=== PATIENT | male | born 1970 | race Caucasian/White ===

== ENCOUNTER 2016-04-22 01:11 | Inpatient (IN) | payer SELFPAY ==
[~2016-04-22] VITALS: Ht 182.9 cm; Wt 74.0 kg
[2016-04-22] VITALS (9 sets, daily range): BP systolic 115–151; BP diastolic 73–79; PULSE 75–95; RESP 16–24; TEMP 98.1–98.2; O2SAT 95–99
[~2016-04-22 01:11] MED LIST: HYDR-3580 PO; MEDR4PAK3 PO; PROT40TA PO; SUPETAB30 PO
[2016-04-22] MEDS ORDERED: ASPI1TAB69 PO (01:14)
[2016-04-22] MEDS ORDERED: SODIUM CHLOR 0.9% 1000 ML INJ 1,000 ML IV SCH (01:21)
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
[2016-04-22] MEDS ORDERED: MORPHINE SULFATE 4 MG/ML INJ IV PUSH ONE (01:30)
[2016-04-22] MEDS ORDERED: THIAMINE INJ 100 MG in SODIUM CHLORIDE 0.9% INJ 100 ML IV ONE (01:30)
[2016-04-22] MEDS ORDERED: SODIUM CHLORIDE 0.9% FLUSH 5 ML FLUSH IVF PRN (01:30)
[2016-04-22] MEDS ORDERED: PANT20 PO (01:37)
[2016-04-22 01:50] LABS: AUTOMATED NEUTROPHIL # 10.3 TH/MM3 (1.8-7.7); BASOPHIL # 0.1 TH/MM3 (0-0.2); BASOPHIL % 0.9 % (0.0-2.0); EOSINOPHIL # 0.4 TH/MM3 (0-0.4); EOSINOPHIL % 2.4 % (0.0-4.0); HEMO FLAGS DIFF FINAL; LYMPH % 20.4 % (9.0-44.0); MEAN CELL VOLUME 92.6 FL (80.0-100.0); MEAN CORPUSCULAR HEMOGLOBIN 31.5 PG (27.0-34.0); MONO % 6.3 % (0.0-8.0); PLATELET COUNT 220 TH/MM3 (150-450); RED BLOOD COUNT 4.43 MIL/MM3 (4.50-5.90); RED CELL DISTRIBUTION WIDTH 13.5 % (11.6-17.2); WHITE BLOOD COUNT 14.7 TH/MM3 (4.0-11.0)
[2016-04-22 02:01] LABS: POTASSIUM 3.2 MEQ/L (3.5-5.1)
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
[2016-04-22] MEDS ORDERED: ONDANSETRON HCL 4 MG/2 ML VIAL ONE (02:22)
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
[2016-04-22] MEDS ORDERED: ONDANSETRON HCL 4 MG/2 ML VIAL IV PUSH ONE ×2 (02:30→12:00)
[2016-04-22] MEDS ORDERED: MORPHINE SULFATE 8 MG/ML INJ IV PUSH ONE (02:30)
[2016-04-22] MEDS ORDERED: HYDROmorphone HCL PF 1 MG/ML VIAL ONE (03:28)
[2016-04-22] MEDS ORDERED: NALOXONE HCL 0.4 MG/ML AMP IV PRN (04:30)
[2016-04-22] MEDS ORDERED: HYDROmorphone HCL PF 1 MG/ML VIAL IV PUSH ONE ×2 (04:30→12:00)
[2016-04-22] MEDS ORDERED: SODIUM CHLORIDE 0.9% FLUSH 5 ML FLUSH FLUSH PRN (04:30)
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
[2016-04-22] MEDS ORDERED: DEXAMETHASONE SOD PHOS 20 MG/5 ML VIAL IV PUSH ONE (05:00)
[2016-04-22] MEDS: SODIUM CHLOR 0.9% 1000 ML INJ 1,000 ML IV SCH ×3 (05:26→19:45)
[2016-04-22] MEDS: PANTOPRAZOLE SODIUM 40 MG VIAL IV PUSH SCH (05:26)
[2016-04-22] MEDS: DEXAMETHASONE SOD PHOS 4 MG/ML VIAL IV PUSH SCH ×2 (05:26→11:42)
[2016-04-22] MEDS: AMPICILLIN-SULBACTAM INJ 1,500 MG in SODIUM CHLORIDE 0.9% INJ 100 ML IV SCH ×4 (05:42→22:05)
[2016-04-22] MEDS: HYDROmorphone HCL PF 1 MG/ML VIAL IV PUSH PRN ×3 (05:42→20:58)
[2016-04-22] MEDS: ONDANSETRON HCL 4 MG/2 ML VIAL IVP PRN ×3 (08:28→12:42)
[2016-04-22] MEDS: SODIUM CHLORIDE 0.9% FLUSH 5 ML FLUSH FLUSH SCH ×2 (08:53→20:58)
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
--- NOTE | 2016-04-22 11:31 | EKG ---
Date Performed: 04/22/2016 Time Performed: 01:43:10 PTAGE: 45 years EKG: Sinus rhythm POSSIBLE LEFT ATRIAL ENLARGEMENT SEPTAL MYOCARDIAL INFARCTION Compared to previous tracing, lateral ST-T wave abnormality has resolved. ABNORMAL ECG PREVIOUS TRACING : 11/26/2014 10.22 DOCTOR: Giovani Nixon Interpretating Date/Time 04/22/2016 11:28:54
[2016-04-22] MEDS ORDERED: KETOROLAC TROMETHAMINE 60 MG/2 ML (IM) VIAL IM ONE (12:00)
[2016-04-22] MEDS ORDERED: PROPOFOL 200 MG/20 ML AMP IV ONE (12:00)
[2016-04-22] MEDS ORDERED: PHENYLEPH/NS 1000 MCG/10 ML SYR IV ONE (12:00)
[2016-04-22] MEDS ORDERED: LACTATED RINGER'S 1000 ML INJ 1,000 ML IV ONE (12:00)
[2016-04-22] MEDS ORDERED: ACETAMINOPHEN 1000 MG/100 ML VIAL IV ONE (16:09)
[2016-04-22] MEDS ORDERED: MIDAZOLAM HCL 2 MG/2 ML VIAL ONE (16:10)
[2016-04-22] MEDS ORDERED: fentaNYL CITRATE 250 MCG/5 ML AMP ONE ×2 (16:10→19:26)
--- NOTE | 2016-04-22 16:25 | HHI.PR ---
Addendum to Inpatient Note Additional Information Patient seen/examined. Patient is currently doing well. Waiting for possible oral surgery today. We'll change IV Dilaudid to 1 mg every 3 hours when necessary. When patient is able to tolerate oral intake, we'll add oral pain medications. Kiah Hsieh DO Apr 22, 2016 4:25 pm
[2016-04-22] MEDS ORDERED: ceFAZolin INJ 1,000 MG VIAL ONE (17:42)
[2016-04-22] MEDS ORDERED: LIDOCAINE 2%/EPINEPHrine 1:100,000 30ML MDV INFIL ONE (17:50)
[2016-04-22] MEDS ORDERED: CHLORHEXIDINE 0.12% (ORAL KIT) 15 ML CUP MT ONE (17:53)
[2016-04-22] MEDS ORDERED: methylPREDNISolone SOD SUCC 125 MG/2 ML VIAL ONE (19:31)
[2016-04-22] MEDS: methylPREDNISolone SOD SUCC 125 MG/2 ML VIAL IV SCH (19:35)
[2016-04-22] MEDS ORDERED: DO NOT ADM ANY ANTICOAGULANT DRUGS XX PRN (19:45)
[2016-04-23] VITALS: BP 129/63; PULSE 80; RESP 16; TEMP 97; O2SAT 97
[2016-04-23] MEDS: HYDROmorphone HCL PF 1 MG/ML VIAL IV PUSH PRN ×4 (00:05→09:13)
[2016-04-23] MEDS: methylPREDNISolone SOD SUCC 125 MG/2 ML VIAL IV SCH (02:16)
[2016-04-23 04:00] VITALS: BP 122/64; PULSE 85; RESP 16; TEMP 96.5; O2SAT 97
[2016-04-23] MEDS: PANTOPRAZOLE SODIUM 40 MG VIAL IV PUSH SCH (04:37)
[2016-04-23] MEDS: ONDANSETRON HCL 4 MG/2 ML VIAL IVP PRN (04:37)
[2016-04-23] MEDS: AMPICILLIN-SULBACTAM INJ 1,500 MG in SODIUM CHLORIDE 0.9% INJ 100 ML IV SCH ×2 (04:37→09:12)
[2016-04-23] MEDS: SODIUM CHLOR 0.9% 1000 ML INJ 1,000 ML IV SCH (04:38)
[2016-04-23 05:36] LABS: AUTOMATED NEUTROPHIL # 20.6 TH/MM3 (1.8-7.7); BASOPHIL % 0.1 % (0.0-2.0); HEMATOCRIT 35.9 % (39.0-51.0); HEMO FLAGS DIFF FINAL; LYMPH % 4.4 % (9.0-44.0); MEAN CELL VOLUME 92.9 FL (80.0-100.0); MEAN CORPUSCULAR HEMOGLOBIN 31.7 PG (27.0-34.0); MEAN CORPUSCULAR HGB CONC 34.2 % (32.0-36.0); MONO % 2.1 % (0.0-8.0); NEUT % 93.4 % (16.0-70.0); PLATELET COUNT 173 TH/MM3 (150-450); RED BLOOD COUNT 3.87 MIL/MM3 (4.50-5.90); RED CELL DISTRIBUTION WIDTH 13.4 % (11.6-17.2)
[2016-04-23 06:01] LABS: BICARBONATE 24.2 MEQ/L (21.0-32.0); POTASSIUM 3.8 MEQ/L (3.5-5.1)
--- NOTE | 2016-04-23 07:35 | HHI.PR ---
Subjective Remarks pod 1 s/p orif right mandible fracture/left subcondylar fracture, closure of lower lip laceration pt seen and examined, AAOx3, NAD. ambulating, voiding, tolerating po no complaints, reports feeling good, bite feels normal girlfriend/nurse at bedside Objective Vital Signs Date Time Temp Pulse Resp B/P Pulse Ox O2 Delivery O2 Flow Rate FiO2 04/23/16 04:00 96.5 85 16 122/64 97 04/23/16 00:00 97.0 80 16 129/63 97 04/22/16 21:08 Nasal Cannula 2.00 04/22/16 20:55 97 Nasal Cannula 2.00 04/22/16 20:55 90 04/22/16 20:35 98.2 75 18 123/74 97 04/22/16 20:00 98.6 87 15 126/78 95 Nasal Cannula 2 04/22/16 19:45 92 17 128/83 96 Nasal Cannula 2 04/22/16 19:30 99 14 131/83 98 Nasal Cannula 3 04/22/16 19:15 96 22 143/85 100 Nasal Cannula 3 04/22/16 19:13 98.9 90 19 147/88 100 Simple Mask 6 04/22/16 15:08 95 16 115/75 96 04/22/16 11:32 88 24 130/79 95 Nasal Cannula 2 04/22/16 09:22 87 16 124/76 97 Room Air 04/22/16 08:07 78 16 146/78 99 Room Air I/O 04/22/16 04/22/16 04/22/16 04/23/16 04/23/16 04/23/16 07:00 15:00 23:00 07:00 15:00 23:00 Intake Total 2426 ml Output Total 950 ml 1300 ml 30 ml Balance -950 ml -1300 ml 2396 ml Intake Oral 720 ml IV Total 206 ml Other 1500 ml Output Urine Total 950 ml 1300 ml 0 ml Estimated Blood Loss 30 ml # Voids 1 1 # Bowel Movements 0 Result Diagram: 04/23/16 0455 04/23/165 Objective Remarks chin dressing in place no facial/neck edema, trach midline bite in occlusion, arch bars/wires in position tissues pink/well perfused, wound margins well approximated, sutures intact, lip wound stable no signs of infection bleeding pus edema wire cutters at bedside Assessment and Plan Assessment and Plan pod 1 s/p orif/ cr b/l mandible fracture, and closure of lower lip laceration pt stable, progressing well wbc increased, c/w steroids, sx ok to d/c to to home from oms standpoint f/up next week dr gregorio - [phone] puree/blenderized diet maintain good oral hygiene send pt home with wire cutters rx in chart - hydrocodone 7.5 /325 per 15 ml (pt reports ok with hydrocodone), peridex rinse, keflex 250mg/5 ml orthodontic wax given to pt Yao Gregorio DMD Apr 23, 2016 07:35
[2016-04-23] MEDS ORDERED: PERI0.126 SWISH-SPIT (07:47)
[2016-04-23] MEDS ORDERED: HYDR1SOL3 PO (07:47)
[2016-04-23 08:00] VITALS: BP 128/70; PULSE 77; RESP 18; TEMP 97.3; O2SAT 93
[2016-04-23] MEDS ORDERED: methylPREDNISolone ACETATE 80 MG/ML VIAL IM ONE (08:00)
[2016-04-23 09:22] VITALS: O2SAT 94
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
[2016-04-23] MEDS ORDERED: CEPH250S PO (10:45)
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
== END 2016-04-23 14:59 | disposition home or self-care (01) | DRG 132 ==
LOC: NEPC 01:11 → NEDA 03:22 → NEDH 08:06 → N06A 20:26
PROVIDERS: ADMIT Hospitalist; ATTEND Hospitalist
PROC: 0NSVXZZ Reposition Left Mandible, External Approach (ICD-10-PCS; 2016-04-22)
PROC: 2W31X9Z Immobilization of Face using Wire (ICD-10-PCS; 2016-04-22)
PROC: 0CQ1XZZ Repair Lower Lip, External Approach (ICD-10-PCS; 2016-04-22)
PROC: 0NST04Z Reposition Right Mandible with Internal Fixation Device, Open Approach (ICD-10-PCS; principal; 2016-04-22 17:24)
DX: S02.641A Fracture of ramus of right mandible, initial encounter for closed fracture (principal); S02.66XA Fracture of symphysis of mandible, initial encounter for closed fracture; S01.511A Laceration without foreign body of lip, initial encounter; Y04.2XXA Assault by strike against or bumped into by another person, initial encounter; F10.129 Alcohol abuse with intoxication, unspecified; Y90.6 Blood alcohol level of 120-199 mg/100 ml; D72.829 Elevated white blood cell count, unspecified; E87.6 Hypokalemia; Z95.3 Presence of xenogenic heart valve; F12.90 Cannabis use, unspecified, uncomplicated; K21.9 Gastro-esophageal reflux disease without esophagitis; K29.50 Unspecified chronic gastritis without bleeding; K08.89 Other specified disorders of teeth and supporting structures; Z72.0 Tobacco use
CPT/HCPCS: 70450; 70486; 71010; 72125; 80048; 80320; 85025; 93005; 96365; 96375; 96376; C1713; C9113; J0131; J0295; J0690; J1040; J1100; J1170; J1885; J2250; J2270; J2370; J2405; J2930; J3010; J3411; J7030; J7120

== ENCOUNTER 2016-08-12 10:15 | Observation (INO) | payer MEDICAID, OTHER ==
[~2016-08-12] VITALS: Ht 182.9 cm; Wt 69.0 kg
[2016-08-12] VITALS (7 sets, daily range): BP systolic 108–123; BP diastolic 63–73; PULSE 48–64; RESP 12–20; TEMP 97.8–98.1; O2SAT 96–98
[~2016-08-12 10:15] MED LIST changes: +ASPI1TAB69 PO; +CEPH250S PO; -HYDR-3580 PO; +HYDR1SOL3 PO; -MEDR4PAK3 PO; +PANT20 PO; +PERI0.126 SWISH-SPIT; -PROT40TA PO; -SUPETAB30 PO
[2016-08-12] MEDS ORDERED: SODIUM CHLOR 0.9% 1000 ML INJ 1,000 ML IV ONE (10:23)
[2016-08-12] MEDS ORDERED: SODIUM CHLORIDE 0.9% FLUSH 10 ML FLUSH IVF PRN (10:30)
[2016-08-12] MEDS ORDERED: PANTOPRAZOLE SODIUM 40 MG VIAL IVP ONE (10:30)
[2016-08-12] MEDS ORDERED: FISH1000 PO (10:35)
--- NOTE | 2016-08-12 10:43 | PD ---
HPI Chief Complaint: Syncope/Near-Syncope Time Seen by Provider: 10:23 Travel History International Travel<30 days: No Contact w/Intl Traveler<30days: No Traveled to known affect area: No History of Present Illness HPI 46-year-old male presents after he states he was going to the bathroom and he got up and the next thing He knows he was on the ground. He has pain to his left shoulder and the back of his head. Quality pain is sharp. Severity is severe per patient. Pain is worse with movement. He states that over the past couple days he's also been having black stools. He denies other specific complaints. He denies other modifying factors. He presents by ambulance. He fell shortly prior to arrival. PFSH Past Medical History Arthritis: No Asthma: No Autoimmune Disease: No Blood Disorders: No Anxiety: Yes Depression: Yes Heart Rhythm Problems: No Cancer: No Cardiovascular Problems: Yes (AORTIC BOVINE VALVE REPLACEMENT) High Cholesterol: No Chemotherapy: No Chest Pain: Yes Congestive Heart Failure: No COPD: No Cerebrovascular Accident: No Diabetes: No Diminished Hearing: No Endocrine: No Gastrointestinal Disorders: Yes (GERD) GERD: Yes Genitourinary: Yes Hiatal Hernia: No Immune Disorder: No Kidney Stones: Yes Musculoskeletal: Yes Neurologic: No Psychiatric: Yes (PTSD, BIPOLAR) Reproductive: No Respiratory: Yes Immunizations Current: No Migraines: No Myocardial Infarction: Yes Pneumonia: Yes Radiation Therapy: No Renal Failure: No Seizures: No Sickle Cell Disease: No Sleep Apnea: No Thyroid Disease: No Ulcer: No Influenza Vaccination: No Past Surgical History Abdominal Surgery: Yes (APPENDECTOMY, BOWEL RESECTION) AICD: No Appendectomy: Yes Arteriovenous Shunt: No Body Medical Devices: AORTIC BOVINE VALVE REPLACEMENT Cardiac Surgery: Yes (AORTIC BOVINE VALVE REPLACEMENT) Ear Surgery: No Endocrine Surgery: No Eye Surgery: No Genitourinary Surgery: No Gynecologic Surgery: No Insulin Pump: No Joint Replacement: No Oral Surgery: No Pacemaker: No Thoracic Surgery: No Other Surgery: Yes (see hx) Social History Alcohol Use: Yes (OCCASIONALLY) Tobacco Use: Yes (one pack per month) Substance Use: Yes (MARIJUANA ) Allergies-Medications (Allergen,Severity, Reaction): Coded Allergies: Barium Sulfate (Verified Allergy, Severe, HIVES/RESPIRATORY, 08/12/16) Chocolate (Verified Allergy, Severe, 08/12/16) Codeine (Verified Allergy, Unknown, 08/12/16) Reported Meds & Prescriptions Reported Meds & Active Scripts Active Reported Fish Oil ([place]-3 Fatty Acids) 1,000 Mg Cap 1,000 Mg PO DAILY Aspirin 81 Mg Tabdr 81 Mg PO DAILY Review of Systems Except as stated in HPI: all other systems reviewed are Neg Physical Exam Narrative GENERAL: Well-nourished, well-developed patient. SKIN: Warm and dry. HEAD: Normocephalic EYES: No injection or drainage. Pupils equal ENT: No nasal drainage noted. NECK: Supple, trachea midline. C-collar in place CARDIOVASCULAR: Regular rate and rhythm RESPIRATORY: No increased effort. No accessory muscle use. GASTROINTESTINAL: Abdomen soft, non-tender, nondistended. RECTAL EXAM: Performed with oil expert and after permission. No large external hemorrhoid or fissure, stool is dark brown and nonbloody. BACK: Nontender without obvious deformity in midline. Extremities: Pain with palpation of left shoulder, no pain with other joints , neurovascularly intact, no lacerations over, compartments soft. NEUROLOGICAL: Awake and alert. Motor and sensory grossly within normal limits. Normal speech. Data Data Last Documented VS Vital Signs Date Time Temp Pulse Resp B/P Pulse Ox O2 Delivery O2 Flow Rate FiO2 08/12/16 12:42 57 12 121/66 97 Room Air 08/12/16 10:22 97.8 Orders Electrocardiogram (08/12/16 10:23) Complete Blood Count With Diff (08/12/16 10:23) Comprehensive Metabolic Panel (08/12/16 10:23) Magnesium (Mg) (08/12/16 10:23) Ckmb (Isoenzyme) Profile (08/12/16 10:23) Troponin I (08/12/16 10:23) Act Partial Throm Time (Ptt) (08/12/16 10:23) Prothrombin Time / Inr (Pt) (08/12/16 10:23) Chest, Single Ap (08/12/16 10:23) Ct Brain W/O Iv Contrast(Rout) (08/12/16 10:23) Ct Cerv Spine W/O Contrast (08/12/16 10:23) Ecg Monitoring (08/12/16 10:23) Iv Access Insert/Monitor (08/12/16 10:23) Oximetry (08/12/16 10:23) Sodium Chloride 0.9% Flush (Ns Flush) (08/12/16 10:30) Sodium Chlor 0.9% 1000 Ml Inj (Ns 1000 M (08/12/16 10:23) Type And Screen (08/12/16 10:23) Pantoprazole Inj (Protonix Inj) (08/12/16 10:30) Pelvis, Ap Only (Routine) (08/12/16 ) Shoulder, Complete (>2vws) (08/12/16 ) Ketorolac Inj (Toradol Inj) (08/12/16 14:00) Drug Screen, Random Urine (08/12/16 14:19) Admit Order (Ed Use Only) (08/12/16 14:19) ^ Other Nursing Orders (08/12/16 14:19) Consult Ent (08/12/16 ) Diet Clear Liquid (08/12/16 Dinner) Npo After Midnight W/ Po Meds (08/12/16 Dinner) Activity Bed Rest With Brp (08/12/16 14:20) Labs Laboratory Tests Test 08/12/16 10:45 White Blood Count 12.6 TH/MM3 Red Blood Count 4.12 MIL/MM3 Hemoglobin 13.4 GM/DL Hematocrit 39.1 % Mean Corpuscular Volume 94.9 FL Mean Corpuscular Hemoglobin 32.4 PG Mean Corpuscular Hemoglobin 34.2 % Concent Red Cell Distribution Width 13.7 % Platelet Count 197 TH/MM3 Mean Platelet Volume 8.0 FL Neutrophils (%) (Auto) 74.8 % Lymphocytes (%) (Auto) 15.0 % Monocytes (%) (Auto) 6.7 % Eosinophils (%) (Auto) 3.1 % Basophils (%) (Auto) 0.4 % Neutrophils # (Auto) 9.4 TH/MM3 Lymphocytes # (Auto) 1.9 TH/MM3 Monocytes # (Auto) 0.8 TH/MM3 Eosinophils # (Auto) 0.4 TH/MM3 Basophils # (Auto) 0.1 TH/MM3 CBC Comment DIFF FINAL Differential Comment Prothrombin Time 9.9 SEC Prothromb Time International 0.9 RATIO Ratio Activated Partial 25.4 SEC Thromboplast Time Sodium Level 142 MEQ/L Potassium Level 4.2 MEQ/L Chloride Level 112 MEQ/L Carbon Dioxide Level 23.3 MEQ/L Anion Gap 7 MEQ/L Blood Urea Nitrogen 15 MG/DL Creatinine 0.86 MG/DL Estimat Glomerular Filtration 95 ML/MIN Rate Random Glucose 101 MG/DL Calcium Level 8.2 MG/DL Magnesium Level 2.3 MG/DL Total Bilirubin 0.1 MG/DL Aspartate Amino Transf 13 U/L (AST/SGOT) Alanine Aminotransferase 12 U/L (ALT/SGPT) Alkaline Phosphatase 52 U/L Total Creatine Kinase 53 U/L Troponin I LESS THAN 0.02 NG/ML Total Protein 6.5 GM/DL Albumin 3.2 GM/DL Blood Type A POSITIVE Antibody Screen NEGATIVE MDM Medical Decision Making Medical Screen Exam Complete: Yes Emergency Medical Condition: Yes Medical Record Reviewed: Yes (past history confirmed) Interpretation(s) EKG shows NSR, no ST elevation or depression, and no arrhythmias. V1 V2 T-wave inversions. CBC & BMP Diagram 08/12/16 10:45 Last [address] 08/12/16 1023 Signed Impressions: Service Date/Time: August 12:51 - CONCLUSION: No bleed or other acute intracranial abnormality. Persistent sinus disease. Possible left mastoiditis. Steve De La Rosa MD Chest X-Ray 08/12/16 1023 Signed Impressions: Service Date/Time: August 10:54 - CONCLUSION: No acute cardiopulmonary abnormality is identified. Steve White MD Cervical Spine CT 08/12/16 1023 Signed Impressions: Service Date/Time: August 12:51 - CONCLUSION: No acute cervical spine abnormality is identified. There is stable cervical kyphosis with severe degenerative disc disease at C4-C5 and C5-C6, as above. Findings are unchanged compared to the April 2016 study. Steve White MD Shoulder X-Ray 08/12/16 0000 Signed Impressions: Service Date/Time: August 10:51 - CONCLUSION: Intact left shoulder. Steve De La Rosa MD Pelvis X-Ray 08/12/16 0000 Signed Impressions: Service Date/Time: August 10:50 - CONCLUSION: Intact pelvis. Steve De La Rosa MD Differential Diagnosis GI bleed, anemia, renal failure, intracranial, fracture, strain, vasovagal, atypical cardiac... Narrative Course Will check blood work, trauma imaging and dose with IV fluids and reevaluate ed workup with possible mastoiditis on CT brain, patient is tender over that area. We will discuss with ENT. Hemoglobin is stable with black stools that are guaiac positive. Patient will be placed in observation for further monitoring given syncopal event with mild GI bleed. Patient agrees to this [facility] Point of Care Internal Pos. & Neg. Controls: Passed Fecal Specimen Occult Blood: Positive Physician Communication Physician Communication dr arevalo states to place on augmentin 10 day course and follow with him in the office dr moreno agrees to admit Diagnosis Primary Impression: Syncope Qualified Code: R55 - Syncope, unspecified syncope type Additional Impressions: Black stool Mastoiditis Qualified Code: H70.92 - Mastoiditis, left Strain of left shoulder Qualified Code: S46.912A - Strain of left shoulder, initial encounter Admitting Information Admitting Physician Requests: Observation Lashawn Martin MD August 12, 2016 10:43
[2016-08-12 11:04] LABS: AUTOMATED NEUTROPHIL # 9.4 TH/MM3 (1.8-7.7); BASOPHIL # 0.1 TH/MM3 (0-0.2); BASOPHIL % 0.4 % (0.0-2.0); EOSINOPHIL # 0.4 TH/MM3 (0-0.4); EOSINOPHIL % 3.1 % (0.0-4.0); HEMATOCRIT 39.1 % (39.0-51.0); HEMO FLAGS DIFF FINAL; LYMPHOCYTE # 1.9 TH/MM3 (1.0-4.8); MEAN CELL VOLUME 94.9 FL (80.0-100.0); MEAN CORPUSCULAR HEMOGLOBIN 32.4 PG (27.0-34.0); MEAN CORPUSCULAR HGB CONC 34.2 % (32.0-36.0); MONO % 6.7 % (0.0-8.0); NEUT % 74.8 % (16.0-70.0); PLATELET COUNT 197 TH/MM3 (150-450); RED BLOOD COUNT 4.12 MIL/MM3 (4.50-5.90); RED CELL DISTRIBUTION WIDTH 13.7 % (11.6-17.2); WHITE BLOOD COUNT 12.6 TH/MM3 (4.0-11.0)
--- NOTE | 2016-08-12 11:11 | RADRPT ---
EXAM DATE/TIME: 08/12/2016 10:50 [facility] COMPARISON: No previous studies available for comparison. INDICATIONS : Pelvic pain after falling this morning. MEDICAL HISTORY : Cardiovascular disease. Gastroesophageal reflux disease. Renal calculi. SURGICAL HISTORY : CABG. Appendectomy. ENCOUNTER: Initial ACUITY: 1 day PAIN SCORE: 7/10 LOCATION: Pelvis. FINDINGS: A single frontal view of the pelvis demonstrates no evidence of fracture. The bony pelvic ring is in tact. Bony mineralization is normal. The soft tissues are intact. CONCLUSION: Intact pelvis. Steve De La Rosa MD on August 12, 2016 at 11:09 Board Certified Radiologist. This report was verified electronically.
--- NOTE | 2016-08-12 11:15 | RADRPT ---
EXAM DATE/TIME: 08/12/2016 10:51 [facility] COMPARISON: No previous studies available for comparison. INDICATIONS : Left shoulder pain after falling this morning. MEDICAL HISTORY : Cardiovascular disease. Gastroesophageal reflux disease. Renal calculi. SURGICAL HISTORY : CABG. Appendectomy. ENCOUNTER: Initial ACUITY: 1 day PAIN SCORE: 7/10 LOCATION: Left shoulder. FINDINGS: Multiple view examination of the left shoulder demonstrates no evidence of fracture or dislocation. The glenohumeral and acromioclavicular joints are maintained. There is normal range of motion betwee n internal and external rotation. Bony mineralization is normal. CONCLUSION: Intact left shoulder. Steve De La Rosa MD on August 12, 2016 at 11:13 Board Certified Radiologist. This report was verified electronically.
[2016-08-12 11:17] LABS: APTT (PATIENT) 25.4 SEC (24.3-30.1); INTERNATIONAL NORMALIZED RATIO 0.9 RATIO; PROTHROMBIN TIME - PATIENT 9.9 SEC (9.8-11.6)
[2016-08-12 11:24] LABS: ANION GAP 7 MEQ/L (5-15); AST (GOT) 13 U/L (15-37); BICARBONATE 23.3 MEQ/L (21.0-32.0); BLOOD UREA NITROGEN 15 MG/DL (7-18); CHLORIDE 112 MEQ/L (98-107); GLOMERULAR FILTRATION RATE 95 ML/MIN (>89); MAGNESIUM 2.3 MG/DL (1.5-2.5); POTASSIUM 4.2 MEQ/L (3.5-5.1); SODIUM (NA) 142 MEQ/L (136-145)
[2016-08-12 11:29] LABS: ALKALINE PHOSPHATASE 52 U/L (45-117); ALT (GPT) 12 U/L (12-78); TOTAL BILIRUBIN ADULT 0.1 MG/DL (0.2-1.0)
--- NOTE | 2016-08-12 11:31 | RADRPT ---
EXAM DATE/TIME: 08/12/2016 10:54 [facility] COMPARISON: CHEST SINGLE AP, April 22, 2016, 1:47. INDICATIONS : Cough for several days. Patient fell this morning. MEDICAL HISTORY : Cardiovascular disease. Gastroesophageal reflux disease. Renal calculi. SURGICAL HISTORY : CABG. Appendectomy. ENCOUNTER: Initial ACUITY: 1 day PAIN SCORE: 7/10 LOCATION: Bilateral chest FINDINGS: Portable AP view the chest demonstrates a normal-sized cardiac silhouette. There is been prior median sternotomy and valve replacement. No pleural effusion, airspace consolidation, or pneumothorax is vi sualized. The bones and soft tissues demonstrate no acute finding. CONCLUSION: No acute cardiopulmonary abnormality is identified. Steve White MD on August 12, 2016 at 11:04 Board Certified Radiologist. This report was verified electronically.
[2016-08-12 11:32] LABS: CREATINE KINASE 53 U/L (39-308)
--- NOTE | 2016-08-12 13:44 | RADRPT ---
EXAM DATE/TIME: 08/12/2016 12:51 [facility] COMPARISON: CT BRAIN W/O CONTRAST, April 22, 2016, 1:52. INDICATIONS : Syncope along with fall. RADIATION DOSE: 31.60 CTDIvol (mGy) MEDICAL HISTORY : Cardiovascular disease. SURGICAL HISTORY : None. ENCOUNTER: Initial ACUITY: 1 day PAIN SCALE: 7/10 LOCATION: cranial TECHNIQUE: Multiple contiguous axial images were obtained of the head. Using automated exposure control and adj ustment of the mA and/or kV according to patient size, radiation dose was kept as low as reasonably a chievable to obtain optimal diagnostic quality images. FINDINGS: CEREBRUM: The ventricles are normal for age. No evidence of midline shift, mass lesion, hemorrhage or acute in farction. No extra-axial fluid collections are seen. POSTERIOR FOSSA: The cerebellum and brainstem are intact. The 4th ventricle is midline. The cerebellopontine angle i s unremarkable. EXTRACRANIAL: Mucoperiosteal thickening again seen of the paranasal sinuses, especially the left sphenoid air cell. Small fluid is also seen in the left mastoid air cells, not significantly changed. SKULL: The calvaria is intact. No evidence of skull fracture. CONCLUSION: No bleed or other acute intracranial abnormality. Persistent sinus disease. Possible left mastoiditis . Steve De La Rosa MD on August 12, 2016 at 13:41 Board Certified Radiologist. This report was verified electronically.
--- NOTE | 2016-08-12 13:44 | RADRPT ---
EXAM DATE/TIME: 08/12/2016 12:51 [facility] COMPARISON: CT CERVICAL SPINE W/O CONTRAST, April 22, 2016, 1:52. INDICATIONS : Dizziness, head and neck pain posterior RADIATION DOSE: 20.24 CTDIvol (mGy) MEDICAL HISTORY : Cardiovascular disease. SURGICAL HISTORY : None. ENCOUNTER: Initial ACUITY: 1 day PAIN SCALE: 7/10 LOCATION: Bilateral neck TECHNIQUE: Volumetric scanning of the cervical spine was performed. Multiplanar reconstructions in the sagittal, coronal and oblique axial planes were performed. Using automated exposure control and adjustment o f the mA and/or kV according to patient size, radiation dose was kept as low as reasonably achievable to obtain optimal diagnostic quality images. FINDINGS: VERTEBRAE: Normal vertebral body height. No fracture is visualized. ALIGNMENT: No anterolisthesis or retrolisthesis. There is mild cervical kyphosis. Craniocervical junction and C1-C2 level demonstrate no abnormality. C2-C3: No disc herniation, canal stenosis, or neural foraminal stenosis. C3-C4: There is a small central disc bulge. No canal stenosis or neural foraminal stenosis is visualized. C4-C5: There is decreased disc height with posterior disc osteophyte complex and uncovertebral osteophyte. T here is mild narrowing of the spinal canal and mild bilateral neural foraminal stenosis, left greater than right. Findings at this level are stable. C5-C6: There is decreased disc height with endplate sclerosis and endplate osteophytes anteriorly as well as a moderate size posterior disc osteophyte complex. There is likely a mild degree of spinal canal caroline nosis and there is bilateral uncovertebral osteophytes causing moderate left and mild right neural fo raminal stenosis. Findings at this level are stable. C6-C7: No disc herniation, canal stenosis, or neural foraminal stenosis is visualized. C7-T1: No disc herniation, canal stenosis, or neural foraminal stenosis is visualized. There are emphysematous changes in the lung apices with bulla at the apex. Visualized surrounding sof t tissues demonstrate no acute finding. CONCLUSION: No acute cervical spine abnormality is identified. There is stable cervical kyphosis with severe dege nerative disc disease at C4-C5 and C5-C6, as above. Findings are unchanged compared to the April 30 study. Steve White MD on August 12, 2016 at 13:35 Board Certified Radiologist. This report was verified electronically.
[2016-08-12] MEDS ORDERED: KETOROLAC TROMETHAMINE 30 MG/ML (IVP) VIAL IV PUSH ONE (14:00)
[2016-08-12 15:01] LABS: AMPHETAMINE, URINE NEG (NEG); BARBITURATES, URINE NEG (NEG); COCAINE, URINE NEG (NEG)
--- NOTE | 2016-08-12 16:18 | HHI.HP ---
[facility]ician No Primary Care Physician Admission Diagnosis syncope, gi bleed Diagnoses: Chief Complaint: Syncopal episode Travel History International Travel<30 Days: No Contact w/Intl Traveler <30 Da: No Traveled to Known Affected Are: No History of Present Illness Patient is a 46-year-old male with a history of aortic valve replacement about 4 years ago secondary to a congenital heart condition was brought into the hospital by EMS. Apparently this morning got up and went to the bathroom and on the way back to the living room pass out. Girlfriend found him him on the floor . When patient woke up he was in the ambulance. On further history patient for the past 2 weeks now has been passing out black tarry stools softer than usual at least 3 times a day. Patient states prior to this bowel movement has been regular brown formed stools. Recently he has been taking ibuprofen for headaches at least 6 pills a day. Patient also complains of "major heartburn" for the past 2 weeks now. Denies any urgent he also takes aspirin on a daily basis since his valvular replacement. Patient is now admitted for further evaluation. States has been having poor by mouth appetite but no weight loss at all Review of Systems Constitutional: DENIES: Diaphoretic episodes, Fatigue, Fever, Weight gain, Weight loss, Chills, Dizziness, Change in appetite, Night Sweats Endocrine: DENIES: Heat/cold intolerance, Polydipsia, Polyuria, Polyphagia Eyes: DENIES: Blurred vision, Diplopia, Eye inflammation, Eye pain, Vision loss , Photosensitivity, Double Vision Ears, nose, mouth, throat: DENIES: Tinnitus, Hearing loss, Vertigo, Nasal discharge, Oral lesions, Throat pain, Hoarseness, Ear Pain, Running Nose, Epistaxis, Sinus Pain, Toothache, Odynophagia Respiratory: DENIES: Apneas, Cough, Snoring, Wheezing, Hemoptysis, Sputum production, Shortness of breath Cardiovascular: DENIES: Chest pain, Palpitations, Syncope, Dyspnea on Exertion , PND, Lower Extremity Edema, Orthopnea, Claudication Gastrointestinal: DENIES: Abdominal pain, Black stools, Bloody stools, Constipation, Diarrhea, Nausea, Vomiting, Difficulty Swallowing, Anorexia Genitourinary: DENIES: Sexual dysfunction, Urinary frequency, Urinary incontinence, Urgency, Hematuria, Dysuria, Nocturia, Penile Discharge, Testicular Pain, Testicular Swelling Musculoskeletal: DENIES: Joint pain, Muscle aches, Stiffness, Joint Swelling, Back pain, Neck pain Hematologic/lymphatic: DENIES: Bruising, Lymphadenopathy Immunologic/allergic: DENIES: Eczema, Urticaria Neurologic: COMPLAINS OF: Headache, DENIES: Abnormal gait, Localized weakness , Paresthesias, Seizures, Speech Problems, Tremor, Poor Balance Psychiatric: DENIES: Anxiety, Confusion, Mood changes, Depression, Hallucinations, Agitation, Suicidal Ideation, Homicidal Ideation, Delusions Past Family Social History Past Medical History Patient denies any hypertension, diabetes, COPD, seizure disorder 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 Patient states that he was able to take himself off it by using marijuana Past Surgical History Aortic valve replacement with bovine valve about 4 years ago for congenital aortic heart valve disease Anterior cruciate ligament MCL repair of the left lower extremity Appendectomy few months ago Patient states had expiratory lap done about 4-6 weeks after appendectomy sounds like he had lysis of adhesions done Reported Medications Aspirin daily Allergies: Coded Allergies: Barium Sulfate (Verified Allergy, Severe, HIVES/RESPIRATORY, 08/12/16) Chocolate (Verified Allergy, Severe, 08/12/16) Codeine (Verified Allergy, Unknown, 08/12/16) Family History No history of colon cancer in the family Positive history of diabetes Social History Smokes 3 cigarettes a day at least Alcohol only on very rare special occasions Admits to marijuana use as stated he used his to take himself off chronic pain meds Physical Exam Vital Signs Vital Signs Date Time Temp Pulse Resp B/P Pulse Ox O2 Delivery O2 Flow Rate FiO2 08/12/16 15:29 97.9 60 20 110/64 96 108/67 116/73 08/12/16 12:42 57 12 121/66 97 Room Air 08/12/16 10:29 53 16 123/63 97 Room Air 08/12/16 10:22 97.8 61 16 123/63 98 Physical Exam GENERAL: This is a well-nourished, well-developed patient, in no apparent distress. SKIN: No rashes, ecchymoses or lesions. Cool and dry. HEAD: Atraumatic. Normocephalic. No temporal or scalp tenderness. EYES: Pupils equal round and reactive. Extraocular motions intact. No scleral icterus. ENT: Nose without bleeding, purulent drainage or septal hematoma. Throat without erythema, tonsillar hypertrophy or exudate. Uvula midline. Airway patent. NECK: Trachea midline. No JVD or lymphadenopathy. Supple, nontender, no meningeal signs. Positive bruit on the right carotid area CARDIOVASCULAR: Regular rate and rhythm without murmurs, gallops, or rubs. Soft 2/6 systolic murmur left sternal border RESPIRATORY: Clear to auscultation. Breath sounds equal bilaterally. No wheezes , rales, or rhonchi. GASTROINTESTINAL: Abdomen soft, non-tender, nondistended. No palpable masses. No guarding. MUSCULOSKELETAL: Extremities without clubbing, cyanosis, or edema. No joint tenderness, effusion, or edema noted. No calf tenderness. Negative Homans sign bilaterally. NEUROLOGICAL: Awake and alert. Cranial nerves II through XII intact. Motor and sensory grossly within normal limits. Five out of 5 muscle strength in all muscle groups. Normal speech. Laboratory Laboratory Tests Test 08/12/16 08/12/16 10:45 14:40 White Blood Count 12.6 Red Blood Count 4.12 Hemoglobin 13.4 Hematocrit 39.1 Mean Corpuscular Volume 94.9 Mean Corpuscular Hemoglobin 32.4 Mean Corpuscular Hemoglobin 34.2 Concent Red Cell Distribution Width 13.7 Platelet Count 197 Mean Platelet Volume 8.0 Neutrophils (%) (Auto) 74.8 Lymphocytes (%) (Auto) 15.0 Monocytes (%) (Auto) 6.7 Eosinophils (%) (Auto) 3.1 Basophils (%) (Auto) 0.4 Neutrophils # (Auto) 9.4 Lymphocytes # (Auto) 1.9 Monocytes # (Auto) 0.8 Eosinophils # (Auto) 0.4 Basophils # (Auto) 0.1 CBC Comment DIFF FINAL Differential Comment Prothrombin Time 9.9 Prothromb Time International 0.9 Ratio Activated Partial 25.4 Thromboplast Time Sodium Level 142 Potassium Level 4.2 Chloride Level 112 Carbon Dioxide Level 23.3 Anion Gap 7 Blood Urea Nitrogen 15 Creatinine 0.86 Estimat Glomerular Filtration 95 Rate Random Glucose 101 Calcium Level 8.2 Magnesium Level 2.3 Total Bilirubin 0.1 Aspartate Amino Transf 13 (AST/SGOT) Alanine Aminotransferase 12 (ALT/SGPT) Alkaline Phosphatase 52 Total Creatine Kinase 53 Troponin I LESS THAN 0.02 Total Protein 6.5 Albumin 3.2 Blood Type A POSITIVE Antibody Screen NEGATIVE Urine Opiates Screen NEG Urine Barbiturates Screen NEG Urine Amphetamines Screen NEG Urine Benzodiazepines Screen NEG Urine Cocaine Screen NEG Urine Cannabinoids Screen POS Result Diagram: 08/12/16 1045 08/12/16 1045 Imaging Last Impressions Head CT 08/12/16 1023 Signed Impressions: Service Date/Time: August 12:51 - CONCLUSION: No bleed or other acute intracranial abnormality. Persistent sinus disease. Possible left mastoiditis. Steve De La Rosa MD Chest X-Ray 08/12/16 1023 Signed Impressions: Service Date/Time: August 10:54 - CONCLUSION: No acute cardiopulmonary abnormality is identified. Steve White MD Cervical Spine CT 08/12/16 1023 Signed Impressions: Service Date/Time: August 12:51 - CONCLUSION: No acute cervical spine abnormality is identified. There is stable cervical kyphosis with severe degenerative disc disease at C4-C5 and C5-C6, as above. Findings are unchanged compared to the April 2016 study. Steve White MD Shoulder X-Ray 08/12/16 0000 Signed Impressions: Service Date/Time: August 10:51 - CONCLUSION: Intact left shoulder. Steve De La Rosa MD Pelvis X-Ray 08/12/16 0000 Signed Impressions: Service Date/Time: August 10:50 - CONCLUSION: Intact pelvis. Steve De La Rosa MD Assessment and Plan Assessment and Plan 46-year-old male presenting with Syncopal episode -workup. Upper GI bleeding patient states history of black melanotic stools-positive NSAIDs use- for the past 2 weeks - ibuprofen 3 times a day at least We'll start patient on Protonix 40 mg IV daily GI consult for evaluation with EGD H&H stable will repeat the CBC in a.m. We will also get a 2-D echo since patient with history of aortic valve replacement to complete workup Get bilateral carotid ultrasound on exam with soft right carotid bruit Positive for marijuana on screen. Patient admits to using it instead of taking narcotic pain pills. Frequent headaches. On head CT-mastoiditis.. Augmentin 875 mg by mouth twice a day for 10 days started per ER discussion with ENT with OP ff up Ultracet when necessary for pain headache Discussed with patient. Discussed Condition With Patient Yumiko Lopez MD August 12, 2016 16:18 Yumiko Lopez MD August 12, 2016 16:18
[2016-08-12] MEDS: AMOXICILLIN/CLAVULANATE K 875 MG TAB PO SCH ×2 (17:06→21:35)
--- NOTE | 2016-08-12 17:10 | EC ---
Study Study Date:08/12/2016 STUDY CONCLUSIONS SUMMARY - Procedure narrative: Transthoracic echocardiography. Image quality was poor. The study was technically limited due to poor acoustic window availability. Scanning was performed from the parasternal, apical, and subcostal acoustic windows. - Left ventricle: The cavity size was normal. Wall thickness was normal. Systolic function was normal. The estimated ejection fraction was in the range of 55% to 60%. Wall motion was normal; there were no regional wall motion abnormalities. - Aortic valve: Not well visualized. A bioprosthesis was present. There was moderate stenosis (mean gradient is in the mildrange for a prosthesis, but the aortic valve area is severely reduced due to valve size mismatch or stenosis). The prosthesis was not well visualized. May consider transesophageal echocardiography if clinically indicated. Valve area: 0.81cm^2 (Vmax). - Tricuspid valve: Mild regurgitation. If LV function is below 40, please consider prescribing an ACEI or ARB or document rationale for non-use. PROCEDURE DATA STUDY STATUS: Elective. Procedure: Transthoracic echocardiography. Image quality was poor. The study was technically limited due to poor acoustic window availability. Scanning was performed from the parasternal, apical, and subcostal acoustic windows. Study completion: The patient tolerated the procedure well. Transthoracic echocardiography. M-mode, complete 2D, complete spectral Doppler, and color Doppler. Height: Height: 72in. Weight: Weight: 151.7lb. Body mass index: BMI: 20.6kg/m^2. Body surface area: BSA: 1.9m^2. Patient status: Inpatient. CARDIAC ANATOMY LEFT VENTRICLE: The cavity size was normal. Wall thickness was normal. Systolic function was normal. The estimated ejection fraction was in the range of 55% to 60%. Wall motion was normal; there were no regional wall motion abnormalities. AORTIC VALVE: Not well visualized. A bioprosthesis was present. Doppler: There was moderate stenosis (mean gradient is in the mild range for a prosthesis, but the aortic valve area is severely reduced due to valve size mismatch or stenosis). The prosthesis was not well visualized. May consider transesophageal echocardiography if clinically indicated. No regurgitation. Valve area: 0.81cm^2 (Vmax). Indexed valve area: 0.43cm^2/m^2 (Vmax). Mean gradient: 17mm Hg (S). Peak gradient: 27mm Hg (S). AORTA: Aortic root: The aortic root was normal in size. MITRAL VALVE: Structurally normal valve. Doppler: Transvalvular velocity was within the normal range. There was no evidence for stenosis. No regurgitation. Peak gradient: 4mm Hg (D). LEFT ATRIUM: The atrium was normal in size. RIGHT VENTRICLE: The cavity size was normal. Wall thickness was normal. PULMONIC VALVE: Doppler: Transvalvular velocity was within the normal range. There was no evidence for stenosis. No regurgitation. TRICUSPID VALVE: Structurally normal valve. Doppler: Transvalvular velocity was within the normal range. Mild regurgitation. PULMONARY ARTERY: The main pulmonary artery was normal-sized. Systolic pressure was within the normal range. RIGHT ATRIUM: The atrium was normal in size. PERICARDIUM: There was no pericardial effusion. SYSTEMIC VEINS: Inferior vena cava: The vessel was normal in size. Patient weight: 151.7lb _Ejection fraction:_ 65-75% _Fractional shortening:_ 32% up to 5Kg 5-11.5Kg 11.6-22.9Kg 23-45Kg 45-57Kg Aortic Root 7-13 <17 13-22 17-27 17-27 LA diam 6-13 <23 24-38 33-47 37-40 RVID 10-17 7-15 7-15 7-18 8-17 LVIDd 12-22 <32 24-38 33-47 37-40 LVPW 2-4 3-6 5-7 6-8 7-8 IVS 2-4 3-6 5-7 6-8 7-8 BASIC MEASUREMENTS ADULT NORMAL Left ventricle LV internal dimension, ED, chordal 49.4 mm 43-52 level, PLAX LV internal dimension, ES, chordal 36.8 mm 23-38 level, PLAX Fractional shortening, chordal level, *26 % >29 PLAX LV posterior wall thickness, ED 10 mm IVS/LVPW ratio, ED 1.03 <1.3 Ventricular septum Septal thickness, ED 10.3 mm BASIC MEASUREMENTS ADULT NORMAL Aorta Root diameter, ED 20 mm 20-37 Left atrium Anterior-posterior dimension, ES 34 mm 19-40 Anterior-posterior dimension index, ES 1.79 cm/m^2 <2.2 LA/aortic root ratio 1.7 DOPPLER MEASUREMENTS ADULT NORMAL Main pulmonary artery Pressure, S 21 mm Hg =30 Aortic valve Peak velocity, S 260 cm/s Mean velocity, S 194 cm/s VTI, S 64.7 cm Mean gradient, S 17 mm Hg Peak gradient, S 27 mm Hg Valve area, Vmax 0.81 cm^2 Valve area index, Vmax 0.43 cm^2/m^2 Mitral valve Peak E-wave velocity 97.2 cm/s Peak A-wave velocity 53.3 cm/s Deceleration time *257 ms 150-230 Peak gradient, D 4 mm Hg Peak E/A ratio 1.8 Tricuspid valve Regurgitant peak velocity 223 cm/s Peak RV-RA gradient, S 20 mm Hg Maximal regurgitant velocity 223 cm/s Systemic veins Estimated CVP 10 mm Hg Right ventricle RV pressure, S *30 mm Hg <30 Pulmonic valve Peak velocity, S 148 cm/s LEGEND: Mean values are shown as u=mean value. Asterisk (*) de león values outside specified normal range. Amended Zohaib Crockett [id number]
[2016-08-12] MEDS: DEXT 5%-NACL 0.9% 1000 ML INJ 1,000 ML IV SCH (17:17)
--- NOTE | 2016-08-12 18:09 | MB ---
cc: DESIREE MORSE M.D., ALFEA DATE OF CONSULTATION: 08/12/2016. REASON FOR CONSULTATION: Melena. PATIENT OF: Dr. Lopez. HISTORY OF PRESENT ILLNESS: Mr. Ervin is a 46-year-old gentleman who basically comes in with severe headache. He says the headaches were so severe that they made him pass out. He says incidentally he has been having some dark-colored loose stools, but he states that is not the primary reason that he came to the hospital. A workup is in progress for his headaches. REVIEW OF SYSTEMS: He is still having headaches. He has had no bleeding. No abdominal pain, no diarrhea at this time. PAST MEDICAL HISTORY: Past medical history significant for: 1. 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 2. Ligament surgery. 3. Appendectomy. 4. Exploratory laparotomy in 2014. MEDICATIONS ON ADMISSION: 1. Aspirin. ALLERGIES: CODEINE. FAMILY HISTORY: Noncontributory. SOCIAL HISTORY: The patient is a smoker. Occasional alcohol. Marijuana use. PHYSICAL EXAMINATION: GENERAL: The physical exam reveals a well-nourished man in no apparent distress. VITAL SIGNS: Stable. HEAD AND NECK: Anicteric sclerae. CHEST: Bilateral air entry with rales. ABDOMEN: Abdomen is soft. Tenderness in the epigastric area. Bowel sounds are present. CARPENTER REFRIGERATOR: Nonfocal. RECTAL: Deferred at this time. LABORATORY DATA: Labs reveal hemoglobin of 13.4. INR is 0.9. Total bilirubin 0.1. IMPRESSION: Melena, abdominal discomfort. RECOMMENDATIONS: 1. EGD discussed with him and is planned for tomorrow. 2. If he has worsening his abdominal pain symptoms, CT of the abdomen and pelvis is recommended. Case discussed with Dr. Campos. Protonix 40 mg daily. Hold aspirin at this time. Thank you for this referral. Fluorescein MD DEANDRE Olsen/THERESA /5:52 PM /6:06 PM
[2016-08-12] MEDS: traMADol/ACETAMINOPHEN 37.5/325 1 TAB PO PRN (19:51)
--- NOTE | 2016-08-12 20:05 | RADRPT ---
EXAM DATE/TIME: 08/12/2016 19:10 [facility] COMPARISON: No previous studies available for comparison. INDICATIONS : Syncope. MEDICAL HISTORY : Myocardial infarction. Gastroesophageal reflux disease. Renal calculi. Headaches. Heart disease. Pneu monia. Back pain. Bipolar. Substance use. Measles. SURGICAL HISTORY : Appendectomy. Aortic valve replacement. Bowel resection. Left knee surgery. ENCOUNTER: Initial ACUITY: 1 day PAIN SCORE: 5/10 LOCATION: Bilateral neck PEAK SYSTOLIC VELOCITIES (cm/sec): ICA/CCA RATIO: Right: 0.8 Left: 0.9 ICA: Right: 91 Left: 102 CCA: Right: 115 Left: 108 ECA: Right: 82 Left: 81 VERTEBRAL: Right: 74 antegrade Left: 72 antegrade Elevated flow velocities and ICA/CCA ratios have been found to correlate with increased degrees of vessel stenosis, calculated as percentage of diameter relative to a normal segment of distal ICA/CCA FINDINGS: RIGHT CAROTID: No significant stenosis is visualized. The waveforms are within normal limits. LEFT CAROTID: There is a tiny area of plaque seen at the carotid bulb region. No significant stenosis is visualized . The waveforms are within normal limits. VERTEBRAL ARTERIES: Antegrade flow is seen in both vertebral arteries. MISCELLANEOUS: None. CONCLUSION: No significant stenosis. There is a tiny area of plaque seen at the left carotid bulb region. Steve Nicole MD on August 12, 2016 at 20:02 Board Certified Radiologist. This report was verified electronically.
[2016-08-13] VITALS: BP 91/54; PULSE 46; RESP 19; TEMP 98; O2SAT 97
[2016-08-13 04:00] VITALS: BP 112/65; PULSE 56; RESP 19; TEMP 97.8; O2SAT 95
--- NOTE | 2016-08-13 07:37 | HHI.PR ---
Subjective Remarks headaches improved, slept well all night, no nausea or vomiting no abdominal pain, melena or hematochezia Objective Vitals Vital Signs Date Time Temp Pulse Resp B/P Pulse Ox O2 Delivery O2 Flow Rate FiO2 08/13/16 04:00 97.8 56 19 112/65 95 08/13/16 00:00 98.0 46 19 91/54 97 08/12/16 20:00 48 08/12/16 19:52 98.1 55 20 115/63 08/12/16 16:00 64 08/12/16 15:29 97.9 60 20 110/64 96 108/67 116/73 08/12/16 12:42 57 12 121/66 97 Room Air 08/12/16 10:29 53 16 123/63 97 Room Air 08/12/16 10:22 97.8 61 16 123/63 98 I/O 08/12/16 08/12/16 08/12/16 08/13/16 08/13/16 08/13/16 07:00 15:00 23:00 07:00 15:00 23:00 Intake Total 240 ml Balance 240 ml Intake Oral 240 ml # Bowel Movements 0 Result Diagram: 08/12/16 1045 08/12/16 1045 Imaging Last Impressions Head CT 08/12/16 1023 Signed Impressions: Service Date/Time: August 12:51 - CONCLUSION: No bleed or other acute intracranial abnormality. Persistent sinus disease. Possible left mastoiditis. Steve De La Rosa MD Chest X-Ray 08/12/16 1023 Signed Impressions: Service Date/Time: August 10:54 - CONCLUSION: No acute cardiopulmonary abnormality is identified. tSeve White MD Cervical Spine CT 08/12/16 1023 Signed Impressions: Service Date/Time: August 12:51 - CONCLUSION: No acute cervical spine abnormality is identified. There is stable cervical kyphosis with severe degenerative disc disease at C4-C5 and C5-C6, as above. Findings are unchanged compared to the April 2016 study. Steve White MD Shoulder X-Ray 08/12/16 0000 Signed Impressions: Service Date/Time: August 10:51 - CONCLUSION: Intact left shoulder. Steve De La Rosa MD Pelvis X-Ray 08/12/16 0000 Signed Impressions: Service Date/Time: August 10:50 - CONCLUSION: Intact pelvis. Steve De La Rosa MD Carotid Artery Ultrasound 08/12/16 0000 Signed Impressions: Service Date/Time: August 19:10 - CONCLUSION: No significant stenosis. There is a tiny area of plaque seen at the left carotid bulb region. Steve Nicole MD Objective Remarks anicteric, no temporal tenderness neck supple lungs clear regular rhythm abdomen soft, nontender extremities no edema no CN deficits no sensory deficits motor 5/5 all extremities gait steady A/P Assessment and Plan 46-year-old male presenting with Syncopal episode -workup- Echo carotid US negative. r/o NSAID gastropathy - Upper GI bleeding patient states history of black melanotic stools-positive NSAIDs use- for the past 2 weeks - D/w no NSAID- -Ibuprofen on Protonix 40 mg IV daily for EGD. History of aortic valve replacement- stable. telemetry- SR- rates occasionally in the 50s-. TSH normal Positive for marijuana on screen. counselled. Patient admits to using it instead of taking narcotic pain pills. Frequent headaches. On head CT-mastoiditis.. Augmentin 875 mg by mouth twice a day for 10 days started per ER discussion with ENT with OP ff up Ultracet when necessary for pain headache 5:50 pm EGD gastritis. d/w him and - no nsaids. no alcohol diet as tolerated. activity weight bearing as tolerated Po protonix daily Augmentin 875 bid advise to see a PCP- they will set up- CM gave them paperworks instruct patient to ff up with a manager mental health- history of AV replacement Yumiko Lopez MD August 13, 2016 07:37
[2016-08-13 07:53] LABS: HEMATOCRIT 40.5 % (39.0-51.0); MEAN CELL VOLUME 96.5 FL (80.0-100.0); MEAN CORPUSCULAR HEMOGLOBIN 31.7 PG (27.0-34.0); MEAN CORPUSCULAR HGB CONC 32.8 % (32.0-36.0); PLATELET COUNT 180 TH/MM3 (150-450); RED BLOOD COUNT 4.19 MIL/MM3 (4.50-5.90); RED CELL DISTRIBUTION WIDTH 13.7 % (11.6-17.2); REVIEW FLAG FINAL; WHITE BLOOD COUNT 9.8 TH/MM3 (4.0-11.0)
[2016-08-13 08:00] VITALS: PULSE 51
[2016-08-13] MEDS ORDERED: PANTOPRAZOLE SODIUM 40 MG VIAL IV PUSH SCH (08:00)
[2016-08-13 08:36] VITALS: BP 93/58; PULSE 77; RESP 18; TEMP 98.7; O2SAT 95
[2016-08-13] MEDS: AMOXICILLIN/CLAVULANATE K 875 MG TAB PO SCH (08:51)
[2016-08-13] MEDS: DEXT 5%-NACL 0.9% 1000 ML INJ 1,000 ML IV SCH (08:55)
[2016-08-13 11:50] VITALS: BP 93/58; PULSE 77; RESP 18; TEMP 98.7; O2SAT 95
[2016-08-13] MEDS ORDERED: PROPOFOL 200 MG/20 ML AMP IV ONE (13:06)
--- NOTE | 2016-08-13 13:07 | GIPROC ---
[facility] [address] [facility]. [facility], [address] EGD PROCEDURE REPORT EXAM DATE: 08/13/2016 PATIENT NAME: Kris Ervin MR #: [id number] BIRTHDATE: 1970 ATTENDING: Lucy Lord MD ORDER #: [id number] PORTAINER OPERATOR: Yuan Rhoades Glinsky, Jason, and Kayla Betancourt STATUS: inpatient INDICATIONS: The patient is a 46 yr old male here for an EGD due to melena PROCEDURE PERFORMED: EGD w/ biopsy MEDICATIONS: None and Per Anesthesia. TOPICAL ANESTHETIC: CONSENT: The patient understands the risks and benefits of the procedure and understands that these risks include, but are not limited to: sedation, allergic reaction, infection, perforation and/or bleeding. Alternative means of evaluation and treatment include, among others: physical exam, x-rays, and/or surgical intervention. The patient elects to proceed with this endoscopic procedure. medical equipment was checked for proper function. Hand hygiene and appropriate measures for infection prevention was taken. After the risks, benefits and alternatives of the procedure were thoroughly explained, Informed consent was verified, confirmed and timeout was successfully executed by the treatment team. The patient was anesthetized with topical anesthesia and the Pentax EG-[id number] endoscope was introduced through the mouth and advanced to the second portion of the duodenum. Retroflexed views revealed no abnormalities The gastroscope was then slowly withdrawn and removed. ESOPHAGUS: The mucosa of the esophagus appeared normal. STOMACH: There was erythematous moderate gastritis in the gastric antrum. A biopsy was performed using cold forceps. Sample sent for histology. DUODENUM: Mild duodenal inflammation was found in the duodenal bulb. ADVERSE EVENTS: There were no complications. IMPRESSIONS: 1. The esophagus appeared normal 2. There was erythematous gastritis in the gastric antrum; biopsy was performed 3. Duodenal inflammation was found in the duodenal bulb 4. Retroflexed views revealed no abnormalities RECOMMENDATIONS: 1. Await biopsy results. Biopsy results will not be ready for 7-10 days. If you don't hear from us in two weeks, call our office for biopsy results. 2. Anti-reflux regimen 3. Continue PPI 4. Avoid NSAIDS 5. Gi fu prn PATIENT CONDITION: stable DISPOSITION: Inpatient REPEAT EXAM: Return 1 year EGD pending biopsy results Lucy Lord MD eSigned: Lucy Lord MD 08/13/2016 1:07 PM cc: PATIENT NAME: Kris Ervin MR#: [id number]
[2016-08-13] MEDS: traMADol/ACETAMINOPHEN 37.5/325 1 TAB PO PRN (14:36)
[2016-08-13 14:59] VITALS: BP 126/67; PULSE 69; RESP 16; TEMP 97.4; O2SAT 100
--- NOTE | 2016-08-13 15:35 | EKG ---
Date Performed: 08/12/2016 Time Performed: 18:43:47 PTAGE: 46 years EKG: SINUS BRADYCARDIA SEPTAL MYOCARDIAL INFARCTION ABNORMAL ECG PREVIOUS TRACING : 08/12/2016 16.18 DOCTOR: Agusto Browne Interpretating Date/Time 08/13/2016 15:31:21
--- NOTE | 2016-08-13 15:40 | EKG ---
Date Performed: 08/12/2016 Time Performed: 16:18:23 PTAGE: 46 years EKG: SINUS BRADYCARDIA SEPTAL MYOCARDIAL INFARCTION ABNORMAL ECG PREVIOUS TRACING : 08/12/2016 10.43 DOCTOR: Agusto Browne Interpretating Date/Time 08/13/2016 15:34:23
--- NOTE | 2016-08-13 15:50 | EKG ---
Date Performed: 08/12/2016 Time Performed: 10:43:42 PTAGE: 46 years EKG: SINUS BRADYCARDIA POSSIBLE LEFT ATRIAL ENLARGEMENT SEPTAL MYOCARDIAL INFARCTION ABNORMAL EC G PREVIOUS TRACING : 04/22/2016 01.43 DOCTOR: Agusto Browne Interpretating Date/Time 08/13/2016 15:41:26
[2016-08-13] MEDS ORDERED: TRAM-388 PO (17:40)
[2016-08-13] MEDS ORDERED: AMOX875T2 PO (17:40)
[2016-08-13] MEDS ORDERED: PROT40TA PO (17:41)
== END 2016-08-13 18:05 | disposition home or self-care (01) ==
LOC: NEPC 10:15 → NEDA 14:20 → NEPGCP 15:03
PROVIDERS: ADMIT Internal Medicine; ATTEND Internal Medicine
DX: K29.50 Unspecified chronic gastritis without bleeding (principal); K29.80 Duodenitis without bleeding; K92.1 Melena; H70.90 Unspecified mastoiditis, unspecified ear; R55 Syncope and collapse; G89.29 Other chronic pain; K21.9 Gastro-esophageal reflux disease without esophagitis; F17.210 Nicotine dependence, cigarettes, uncomplicated; I25.2 Old myocardial infarction; Z95.3 Presence of xenogenic heart valve; Z88.5 Allergy status to narcotic agent; Z88.8 Allergy status to other drugs, medicaments and biological substances; Z91.018 Allergy to other foods; Z95.2 Presence of prosthetic heart valve; Z79.82 Long term (current) use of aspirin
CPT/HCPCS: 00740; 43239; 70450; 71010; 72125; 72170; 73030; 80053; 80307; 82550; 83735; 84443; 84484; 85025; 85027; 85610; 85730; 86850; 86900; 86901; 88305; 88312; 93005; 93306; 93880; 96361; 96374; 96375; 99285; C9113; G0378; J1885; J7030; J7042